=== PATIENT | male | born 1975 | race Two or more races ===

== ENCOUNTER 2024-06-08 12:08 | Emergency (ER) | payer BC ==
[~2024-06-08] VITALS: Ht 190.5 cm; Wt 106.6 kg
[2024-06-08] MEDS: KETOROLAC TROMETHAMINE 15 MG/ML VIAL IM ONE (13:00)
[2024-06-08] MEDS ORDERED: KETOROLAC TROMETHAMINE 15 MG/ML VIAL ONE (13:12)
[2024-06-08] MEDS ORDERED: ACET-2030 PO (13:34)
[2024-06-08] MEDS ORDERED: IBUP-1957 PO (13:34)
[2024-06-08 14:10] VITALS: BP 131/76; TEMP 98.8; O2SAT 100
== END 2024-06-08 14:11 | disposition home or self-care (01) ==
LOC: ER 12:17
DX: M75.102 Unspecified rotator cuff tear or rupture of left shoulder, not specified as traumatic (principal); Z60.2 Problems related to living alone
CPT/HCPCS: 99283; 96372; 73030; J1885

== ENCOUNTER 2024-07-09 17:50 | Emergency (ER) | payer BC ==
[~2024-07-09] VITALS: Ht 182.9 cm; Wt 111.1 kg
[~2024-07-09 17:50] MED LIST: ACET-2030 PO; IBUP-1957 PO
[2024-07-09] MEDS ORDERED: LORAZEPAM INJ 2 MG/ML VIAL ONE (18:52)
[2024-07-09] MEDS: LORAZEPAM INJ 2 MG/ML VIAL IVP ONE (18:59)
[2024-07-09] MEDS: IV NS 0.9% 1,000 ML BAG IV ONE (18:59)
[2024-07-09 19:07] LABS: BASOPHILS # (AUTO) 0.1 K/uL (0.0-0.2); BASOPHILS % (AUTO) 0.8 % (0.0-2.0); EOSINOPHILS # (AUTO) 0.3 K/uL (0.0-0.7); EOSINOPHILS % (AUTO) 2.9 % (0.0-6.0); HEMATOCRIT 40 % (39-51); HEMOGLOBIN 13.9 g/dL (13.5-17.5); LYMPHOCYTES # (AUTO) 3.2 K/uL (0.8-4.8); LYMPHOCYTES % (AUTO) 30.5 % (20.0-44.0); MEAN CORPUSCULAR HEMOGLOBIN 33 PG (26.0-33.0); MEAN CORPUSCULAR HGB CONC 34 g/dl (31.0-36.0); MEAN CORPUSCULAR VOLUME 95 fL (80-96); MONOCYTES # (AUTO) 1.2 K/uL (0.1-1.30); NEUTROPHILS # (AUTO) 5.7 K/uL (1.8-8.9); NEUTROPHILS % (AUTO) 54.8 % (43.0-81.0); PLATELET COUNT (AUTO) 434 K/uL (150-450); RED BLOOD CELL COUNT(AUTO) 4.25 MIL/uL (4.5-6.0); RED CELL DISTRIBUTION WIDTH 14.7 % (11.5-15.0); WHITE BLOOD COUNT (AUTO) 10.5 K/uL (4.3-11.0)
[2024-07-09 19:10] LABS: CALCIUM, SERUM 8.4 mg/dL (8.5-10.1); CARBON DIOXIDE 31 mmol/L (21-32); CHLORIDE 106 mmol/L (98-107); GLUCOSE 76 mg/dL (74-106); POTASSIUM 3.3 mmol/L (3.5-5.1); SODIUM SERUM 141 mmol/L (136-145); UREA NITROGEN, BLOOD 10 mg/dL (7-18)
[2024-07-09 19:16] LABS: ACETAMINOPHEN 1 ug/ml (10-30); ALANINE AMINOTRANSFERASE 307 U/L (12-78); ALBUMIN 2.8 g/dL (3.4-5.0); ALCOHOL, BLOOD < 3 mg/dL (0-10); ALKALINE PHOSPHATASE 69 U/L (46-116); ASPARTATE AMINOTRANSFERASE 243 U/L (15-37); BILIRUBIN,DIRECT 0.4 mg/dL (0.0-0.2); BILIRUBIN,TOTAL 0.7 mg/dL (0.2-1.0); TOTAL PROTEIN, SERUM 5.9 g/dL (6.4-8.2)
[2024-07-09 19:22] LABS: SALICYLATE < 0.2 mg/dL (2.8-20.0)
[2024-07-09 20:04] VITALS: BP 147/98; TEMP 98.4; O2SAT 98
== END 2024-07-09 20:00 | disposition home or self-care (01) ==
LOC: ER 17:50
DX: F15.10 Other stimulant abuse, uncomplicated (principal); Z79.1 Long term (current) use of non-steroidal anti-inflammatories (NSAID); Z79.899 Other long term (current) drug therapy; Z20.822 Contact with and (suspected) exposure to COVID-19; Z60.2 Problems related to living alone
CPT/HCPCS: 99283; 96374; 96361; 85025; 80048; 80076; 36415; 87426; 80143; 80320; J2060; J7030; G0480

== ENCOUNTER 2025-02-04 11:23 | Emergency (ER) | payer BC ==
[~2025-02-04] VITALS: Ht 182.9 cm; Wt 108.6 kg
[2025-02-04 11:33] VITALS: BP 126/68; TEMP 98.1; O2SAT 96
[2025-02-04] MEDS ORDERED: LIDOCAINE /MPF 1% VIAL 5 ML VIAL ONE (12:45)
[2025-02-04] MEDS: LIDOCAINE HCL/PF 1% 30 ML VIAL TP ONE (12:58)
[2025-02-04] MEDS ORDERED: SULF1TAB48 PO (13:16)
[2025-02-04] MEDS ORDERED: CEPH500C2 PO (13:16)
== END 2025-02-04 13:23 | disposition home or self-care (01) ==
LOC: ER 11:44
DX: L02.511 Cutaneous abscess of right hand (principal); F17.200 Nicotine dependence, unspecified, uncomplicated; Z79.1 Long term (current) use of non-steroidal anti-inflammatories (NSAID); Z60.2 Problems related to living alone
CPT/HCPCS: 99283; 10060; J3490 ×2; A6403 ×2